=== PATIENT | female | born 1945 | race Caucasian/White ===

== ENCOUNTER 2021-05-26 02:27 | Day surgery (SDC) | payer MEDICARE, SELFPAY ==
[2021-05-21 08:56] VITALS: BMI 27.3
--- NOTE | 2021-05-26 07:19 | WPDHPUPDATE1 ---
History and Physical Update Update Date/Time: 05/26/21 07:19 History and Physical has been reviewed, including an updated exam of the patient. There are NO changes in the patient's condition. Risks, benefits, and alternatives have been discussed and questions answered. Patient agrees to proceed with procedure.
--- NOTE | 2021-05-26 12:23 | WPDANESEPPF ---
Anes - Initial Pre Proc Eval Procedure: Operation Date: 05/26/21 13:30 Proposed Procedures p Right Carpal Tunnel Release - Rubén Matos MD Date/Time: 05/26/21 12:23 Surgeon: Rubén Matos MD Pre Op Diagnosis: Right Carpal Tunnel Syndrome Patient Data Age: 76 Gender: F Height: 1.65 m Weight: 74.4 kg Allergies Allergy/AdvReac Type Severity Reaction Status Date / Time Sulfa (Sulfonamide Allergy Unknown UNKNOWN Verified 05/21/21 08:37 Antibiotics) sulfanilamide Allergy Unknown Unknown Verified 05/21/21 08:37 Home Medications Medication Instructions Recorded Confirmed Type PreserVision AREDS 2 tablet PO HS 07/25/19 05/21/21 History aspirin 81 mg tablet,delayed 81 mg PO HS 05/11/20 05/21/21 History release biotin 10,000 mcg capsule 10,000 mcg PO HS 05/11/20 05/21/21 History cholecalciferol (vitamin D3) 100 1,000 unit PO HS cap 05/11/20 05/21/21 History mcg (4,000 unit) capsule losartan 25 mg tablet 25 mg PO HS #90 tablet 10/02/20 05/21/21 Rx levothyroxine 25 mcg tablet 25 mcg PO Q48H #45 tablet 10/21/20 05/21/21 Rx multivitamin,gg-[id number] 1 tablet PO HS 05/21/21 05/21/21 History [Complete Multivitamin] Patient hx anesthesia problems: none Family hx anesthesia problems: none PMFSH Past Medical History Medical History Acid reflux Aftercare following knee joint replacement surgery Arthritis Cataract Chicken pox Hearing loss Hemorrhoid HTN (hypertension) with goal to be determined Hyperlipidemia Hypothyroid Measles Osteoarthritis Vision changes Surgical History Surgical History History of hysterectomy History of lumpectomy History of total left knee replacement Status post left knee replacement Status post right knee replacement Total knee replacement status Family History Family History Sibling Hypertension Carcinoma of colon Father Family history of chronic obstructive pulmonary disease Mother Patient's mother is Acute myocardial infarction Other Family history of arthritis Family history of malignant neoplasm Social History Social History Smoking status: Never smoker Alcohol intake: never Substance use: never Living arrangements: alone Gender identity (if verbalized by the patient): Female Spiritual care concerns: No Anes - Eval Final PreProcedure Day of Procedure 05/26/21 12:23 Patient weight: overweight Heart: regular rate and rhythm Lungs: clear to auscultation and normal air movement Airway: Mallampati scale class II Neurological: alert and oriented Last oral intake: >/= 8 hours ASA classification: II Emergent: no Anesthetic plan: proceed Anesthesia type and monitoring: general GIVS and standard monitoring Informed Consent: The patient's anesthetic plan and its attendant risks and benefits were discussed with the patient/family/POA. Questions were solicited and answers provided to the satisfaction of the patient/family/POA.
[2021-05-26] MEDS: CELECOXIB 200 MG CAPSULE PO (12:40)
[2021-05-26] MEDS: ACETAMINOPHEN 500 MG TABLET 1000 MG PO (12:40)
[2021-05-26] MEDS: LACTATED RINGERS 1,000 ML 30 ML IV CONT (12:45)
[2021-05-26] MEDS: ceFAZolin 2 GM/D5W 50 ML 2 GM/50 ML BAG IVPB (13:32)
[2021-05-26 14:16] VITALS: BP 120/65; PULSE 78; RESP 14; O2SAT 95
--- NOTE | 2021-05-26 14:22 | W.PM.PROC2 ---
Procedure Note - Detailed Date of Procedure 05/26/21 Pre-op Diagnosis Right Carpal Tunnel Syndrome Post-op Diagnosis same Procedure Performed RIGHT CTR Surgeon Rubén Matos MD Anesthesia general Description of Procedure THE RIGHT UPPER EXTREMITY WAS PREPPED AND DRAPED IN THE STERILE FASHION. THE CARPAL TUNNEL WAS MARKED FROM THE FLEXED RING FINGER. THE TOURNIQUET WAS INFLATED. THE INCISION WAS MADE AT THE MID PALM DOWN THROUGH THE SUBCUTANEOUS TISSUES. THE PALMAR FASCIA WAS IDENTIFIED. AN INCISION WAS MADE THROUGH THE PALMAR FASCIA UNTIL THE CARPAL TUNNEL WAS ENTERED. A MOSQUITO HEMOSTAT WAS USED TO PROTECT THE MEDIAN NERVE WHILE THE INCISION TO THE PALMAR FASCIA WAS COMPLETE PROXIMALLY AND DISTALLY TO THE CARDINAL LINE. NEXT, THE TRANSVERSE CARPAL LIGAMENT WAS IDENTIFIED. A FREER ELEVATOR WAS USED TO SEPARATE THE NERVE FROM THE LIGAMENT. A METZENBAUM SCISSORS WAS THEN USED TO INCISE THE TRANSVERSE CARPAL LIGAMENT UNTIL THERE WAS A COMPLETE RELEASE OF THE CARPAL TUNNEL. THE MEDIAN NERVE WAS INTACT. THE TOURNIQUET WAS DEFLATED. THE BLEEDERS WERE CAUTERIZED. THE WOUND WAS WASHED. THE SKIN WAS APPROXIMATED WITH 4-0 NYLON SUTURE. STERILE DRESSING WAS APPLIED. PATIENT WAS EXTUBATED AND SENT TO THE RECOVERY ROOM. Estimated Blood Loss 5 Complications No immediate complications Condition stable Disposition PACU
[2021-05-26 14:40] VITALS: BP 145/69; PULSE 76; RESP 14; O2SAT 95
[2021-05-26 15:10] VITALS: BP 153/67; PULSE 75; RESP 14
== END 2021-05-26 15:35 | disposition home or self-care (01) ==
PROVIDERS: PCP Internal Medicine; Visit Provider Orthopaedic Surgery
PROC: (CPT 64721; principal; 2021-05-26 13:30)
DX: G56.01 Carpal tunnel syndrome, right upper limb (principal); I10 Essential (primary) hypertension; E78.5 Hyperlipidemia, unspecified; E03.9 Hypothyroidism, unspecified; K21.9 Gastro-esophageal reflux disease without esophagitis; M19.90 Unspecified osteoarthritis, unspecified site; Z79.82 Long term (current) use of aspirin
CPT/HCPCS: 64721; A9270; J0690; J2704; J3010; J7120

== ENCOUNTER 2021-11-01 08:30 | Outpatient (CLI) | payer OTHER, SELFPAY ==
[2021-11-01 09:06] LABS: Basophils Percent Auto 0.8 % (0.2-1.2); Eosinophils Absolute Auto 0.3 K/mm3 (0-0.3); Eosinophils Percent Auto 5.7 % (0-4.4); Hematocrit 38.1 % (37.0-47.0); Hemoglobin 12.1 g/dL (12.0-15.0); Immature Granulocyte Absolute 0.02 K/mm3 (0.00-0.031); Immature Granulocyte Percent A 0.4 % (0-0.5); Lymphocytes Absolute Auto 1.26 K/mm3 (0.9-3.2); Lymphocytes Percent Auto 23.8 % (18.3-44.2); Mean Corpuscular HGB Conc 31.8 g/dl (32-36); Mean Corpuscular Hemoglobin 29.7 pg (26-34); Mean Corpuscular Volume 93.6 fl (80-100); Mean Platelet Volume 9.2 fl (7.4-10.4); Monocytes Absolute Auto 0.4 K/mm3 (0.1-0.6); Neutrophils Absolute Auto 3.3 K/mm3 (1.3-6.7); Neutrophils Percent Auto 62.3 % (45.5-73.1); Platelet Count Result 291 k/mm3 (150-375); Red Blood Count 4.07 M/mm3 (4.2-5.4); Red Cell Distribution Width 12.9 % (11.5-14.5); White Blood Count 5.3 K/mm3 (4.5-10.0)
[2021-11-01 09:10] LABS: Alanine Aminotransferase 18 U/L (4-35); Albumin Level 4.1 g/dL (3.5-5.1); Alkaline Phosphatase 78 U/L (38-126); Anion Gap 4 mmol/L (8-16); Aspartate Amino Transferase 43 U/L (14-36); Bilirubin,Total 0.5 mg/dL (0.2-1.3); Blood Urea Nitrogen 15 mg/dL (7-17); Calcium 9.3 mg/dL (8.4-10.2); Carbon Dioxide 27 mmol/L (22-30); Chloride 108 mmol/L (98-107); Cholesterol 221 mg/dL (0-200); Estimated Glomerular Filt Rate > 60; Glucose 114 mg/dL (65-110); HDL Direct 44 mg/dL; Potassium 4.1 mmol/L (3.4-5.0); Sodium 139 mmol/L (137-145); Triglycerides 98 mg/dL (<150)
[2021-11-01 09:22] LABS: LDL Cholesterol Direct 130 mg/dL
== END 2021-11-01 08:31 | disposition home or self-care (01) ==
PROVIDERS: PCP Internal Medicine; Visit Provider Nurse Practitioner
DX: I10 Essential (primary) hypertension (principal); E55.9 Vitamin D deficiency, unspecified; E78.5 Hyperlipidemia, unspecified; E03.9 Hypothyroidism, unspecified
CPT/HCPCS: 36415; 80053; 80061; 82306; 84443; 85025

== ENCOUNTER 2022-06-15 09:05 | Outpatient (CLI) | payer OTHER, SELFPAY ==
[2022-06-15 20:18] LABS: Hemoglobin A1C 5.6 % (<5.7)
[2022-06-15 20:28] LABS: Alanine Aminotransferase 25 U/L (6-35); Albumin Level 4.2 g/dL (3.5-5.1); Alkaline Phosphatase 76 U/L (38-126); Anion Gap 12 mmol/L (8-16); Aspartate Amino Transferase 65 U/L (14-36); Bilirubin,Total 0.3 mg/dL (0.2-1.3); Blood Urea Nitrogen 10 mg/dL (7-17); Calcium 9.2 mg/dL (8.4-10.2); Carbon Dioxide 24 mmol/L (22-30); Chloride 105 mmol/L (98-107); Cholesterol 146 mg/dL (0-200); Estimated Glomerular Filt Rate > 60; Glucose 102 mg/dL (65-110); HDL Direct 41 mg/dL; Potassium 3.9 mmol/L (3.4-5.0); Sodium 141 mmol/L (137-145); Triglycerides 90 mg/dL (<150)
[2022-06-15 20:38] LABS: LDL Cholesterol Direct 70 mg/dL
== END 2022-06-15 09:06 | disposition home or self-care (01) ==
PROVIDERS: PCP Internal Medicine; Visit Provider Nurse Practitioner
DX: R73.03 Prediabetes (principal); E78.2 Mixed hyperlipidemia
CPT/HCPCS: 36415; 80053; 80061; 83036

== ENCOUNTER 2023-06-20 08:29 | Outpatient (CLI) | payer OTHER, SELFPAY ==
[2023-06-20 12:09] LABS: Basophils Absolute Auto 0.1 K/mm3 (0.0-0.1); Basophils Percent Auto 0.7 % (0.2-1.2); Eosinophils Absolute Auto 0.2 K/mm3 (0-0.3); Eosinophils Percent Auto 2.7 % (0-4.4); Hematocrit 36.9 % (37.0-47.0); Hemoglobin 11.2 g/dL (12.0-15.0); Immature Granulocyte Absolute 0.04 K/mm3 (0.00-0.031); Immature Granulocyte Percent A 0.5 % (0-0.5); Lymphocytes Absolute Auto 1.46 K/mm3 (0.9-3.2); Lymphocytes Percent Auto 19.6 % (18.3-44.2); Mean Corpuscular HGB Conc 30.4 g/dl (32-36); Mean Corpuscular Hemoglobin 29.8 pg (26-34); Mean Corpuscular Volume 98.1 fl (80-100); Mean Platelet Volume 9.7 fl (7.4-10.4); Monocytes Absolute Auto 0.5 K/mm3 (0.1-0.6); Neutrophils Absolute Auto 5.2 K/mm3 (1.3-6.7); Neutrophils Percent Auto 69.5 % (45.5-73.1); Platelet Count Result 313 k/mm3 (150-375); Red Blood Count 3.76 M/mm3 (4.2-5.4); Red Cell Distribution Width 13.2 % (11.5-14.5); White Blood Count 7.4 K/mm3 (4.5-10.0)
[2023-06-20 12:17] LABS: Alanine Aminotransferase 38 U/L (6-35); Albumin Level 4.1 g/dL (3.5-5.1); Alkaline Phosphatase 94 U/L (38-126); Anion Gap 7 mmol/L (8-16); Aspartate Amino Transferase 73 U/L (14-36); Bilirubin,Total 0.5 mg/dL (0.2-1.3); Blood Urea Nitrogen 7 mg/dL (7-17); Calcium 9.2 mg/dL (8.4-10.2); Carbon Dioxide 26 mmol/L (22-30); Chloride 107 mmol/L (98-107); Cholesterol 148 mg/dL (0-200); Estimated Glomerular Filt Rate > 60; Glucose 97 mg/dL (65-110); HDL Direct 42 mg/dL; Potassium 4.1 mmol/L (3.4-5.0); Sodium 140 mmol/L (137-145); Triglycerides 86 mg/dL (<150)
[2023-06-20 12:30] LABS: LDL Cholesterol Direct 73 mg/dL
[2023-06-20 12:41] LABS: Vitamin D 25 Hydroxy 38.8 ng/mL
[2023-06-20 12:57] LABS: Hemoglobin A1C 5.4 % (<5.7)
== END 2023-06-20 08:30 | disposition home or self-care (01) ==
PROVIDERS: PCP Internal Medicine; Visit Provider Nurse Practitioner
DX: R73.03 Prediabetes (principal); E78.5 Hyperlipidemia, unspecified; E55.9 Vitamin D deficiency, unspecified; I10 Essential (primary) hypertension; E03.9 Hypothyroidism, unspecified
CPT/HCPCS: 36415; 80053; 80061; 82306; 83036; 84443; 85025

== ENCOUNTER 2024-07-11 08:55 | Outpatient (CLI) | payer OTHER, SELFPAY ==
[2024-07-11 18:52] LABS: Basophils Absolute Auto 0.1 K/mm3 (0.0-0.1); Eosinophils Absolute Auto 0.2 K/mm3 (0-0.3); Eosinophils Percent Auto 2.9 % (0-4.4); Hematocrit 38.5 % (37.0-47.0); Hemoglobin 11.8 g/dL (12.0-15.0); Immature Granulocyte Absolute 0.02 K/mm3 (0.00-0.031); Immature Granulocyte Percent A 0.3 % (0-0.5); Lymphocytes Absolute Auto 1.75 K/mm3 (0.9-3.2); Lymphocytes Percent Auto 28.4 % (18.3-44.2); Mean Corpuscular HGB Conc 30.6 g/dl (32-36); Mean Corpuscular Hemoglobin 29.1 pg (26-34); Mean Corpuscular Volume 94.8 fl (80-100); Mean Platelet Volume 10.4 fl (7.4-10.4); Monocytes Absolute Auto 0.5 K/mm3 (0.1-0.6); Neutrophils Absolute Auto 3.7 K/mm3 (1.3-6.7); Neutrophils Percent Auto 59.4 % (45.5-73.1); Platelet Count Result 266 k/mm3 (150-375); Red Blood Count 4.06 M/mm3 (4.2-5.4); White Blood Count 6.2 K/mm3 (4.5-10.0)
[2024-07-11 19:53] LABS: LDL Cholesterol Direct 61 mg/dL
[2024-07-11 19:54] LABS: Alanine Aminotransferase 21 U/L (6-35); Albumin Level 4.1 g/dL (3.5-5.1); Alkaline Phosphatase 71 U/L (38-126); Anion Gap 6 mmol/L (4-12); Aspartate Amino Transferase 59 U/L (14-36); Bilirubin,Total 0.5 mg/dL (0.2-1.3); Blood Urea Nitrogen 12 mg/dL (7-17); Calcium 9.4 mg/dL (8.4-10.2); Carbon Dioxide 26 mmol/L (22-30); Chloride 105 mmol/L (98-107); Cholesterol 157 mg/dL (0-200); Estimated Glomerular Filt Rate > 60; Glucose 95 mg/dL (65-110); HDL Direct 53 mg/dL; Potassium 4.2 mmol/L (3.4-5.0); Sodium 137 mmol/L (137-145); Triglycerides 101 mg/dL (<150)
[2024-07-11 21:06] LABS: Hemoglobin A1C 6.1 % (<5.7)
[2024-07-11 21:14] LABS: Vitamin D 25 Hydroxy 47.8 ng/mL
== END 2024-07-11 08:56 | disposition home or self-care (01) ==
PROVIDERS: PCP Internal Medicine; Visit Provider Nurse Practitioner
DX: R73.03 Prediabetes (principal); E78.5 Hyperlipidemia, unspecified; E55.9 Vitamin D deficiency, unspecified; E03.9 Hypothyroidism, unspecified
CPT/HCPCS: 36415; 80053; 80061; 82306; 83036; 84443; 85025

== ENCOUNTER 2025-01-10 09:37 | Outpatient (CLI) | payer OTHER, SELFPAY ==
--- OUTSIDE RECORDS SUMMARY | 2025-01-10 09:42 | XMS_ITS | Continuity of Care Document ---
Author Organization [facility] [place] Address [address] [facility] [address] [facility] [address] [place] [phone] Phone Care Team Providers Care [employer] Name Role Phone Nick OD, Evan Unavailable Unavailable Procedures Procedure Date Eye Exam & Treatment Dilated Macular Exam Performed 10 Counseling For Antioxidant Supplements A Post-op Follow-up Visit Post-op Follow-up Visit Remove Cataract, Insert Lens PreOp Assessment Performed Limbal Relaxing Incision Office/outpatient Visit, Est Dilated Macular Exam Performed 09 Counseling For Antioxidant Supplements J Script Printed/Phoned Pt Requ Or Pharm N ot Availab [facility]Professional Eye Exam & Treatment No Script CL Replacement - [employer] Disp W/BW Soft A Green Night's Sleep Medical Eye Exam & Treatment No Script CL Replacement - [employer] Other 008 Tax Medical CL Replacement - [employer] Other 008 [facility] Medical Post-op Follow-up Visit Refraction Post-op Follow-up Visit Remove Cataract, Insert Lens Eye Exam & Treatment [employer] Advance Directives Directive Yes / No Effective Date File Name No Information Encounters Encounter Description Practice Location Reason(s) For Visit Diagnoses Date Provider Providers Copied on Encounter [facility], [id number] [place] [address] [address], [place], [place], [id number], [place] tel:[phone] [facility] No Information 0 Nick OD Evan. [address], [address], [place], [place], [facility], [place]. tel:[phone] [facility], [address] [place] [address] [address], [place], [place], [id number], [place] tel:[phone] [facility] No Information 9 Nick OD Evan. [address], [address], [place], [place], [facility], [place]. tel:[phone] [facility], [address] [place] [address] [address], [place], [place], [id number], [place] tel:[phone] [facility] No Information 2200 9 Doisy Edok. [address], [address], [place], [place], [facility], [place]. tel:[phone] [facility], [address] [place] [address] [address], [place], [place], [id number], [place] tel:[phone] [facility] No Information 1200 9 Doisy Edok. [address], [address], [place], [place], [facility], [place]. tel:[phone] Office/outpat ient Visit, Est [facility], [address] [place] [address] [address], [place], [place], [id number], [place] tel:[phone] [facility] No Information 3[address] Doisy Edok. [address], [address], [place], [place], [facility], [place]. tel:[phone] Referring Provider: Evan Nick OD A, [address], [place], [place], [facility]. tel:[phone] [facility], [address], [place], [place], [id number], [place] tel:[phone] [facility] No Information Bala-0 2-200 9 Nick OD Evan. [address] , [address], [place], [place], [facility], [place]. tel:[phone] [facility], [address] [place] [address] [address], [place], [place], [id number], [place] tel:[phone] [facility] No Information Apr-2 2-200 9 Nick OD Evan. [address] , [address], [place], [place], [facility], [place]. tel:[phone] [facility], [address] [place] [address] [address], [place], [place], [id number], [place] tel:[phone] [facility] No Information Mar-1 2-200 9 Doisy Edward. [address] , [address], [place], [place], [facility], [place]. tel:[phone] [facility], [address] [place] [address] [address], [place], [place], [id number], [place] tel:[phone] [facility] No Information Oct-2 1-200 8 Nick OD Evan. [address] , [address], [place], [facility], [place]. tel:[phone] [facility], [address] [place] [address] [address], [place], [place], [id number], [place] tel:[phone] [facility] No Information Aug-1 2-200 8 Nick OD Evan. [address] , [address], [place], [facility], [place]. tel:[phone] [facility], [address] [place] [address] [address], [place], [place], [id number], tel:[phone] [facility] No Information 8 Nick OD Evan. [facility] [address] , [address], [place], [place], [facility], . tel:[phone] [facility], [address], [place], [place], [id number], tel:[phone] [facility] No Information 8 Suzie Suresh. [facility] [address], [place], [facility], [place]. tel:[phone] [facility], [address], [place], [place], [id number], tel:[phone] [facility] No Information 8 Suzie Suresh. [address] [place], [place] [address], [address], [place], [facility], [place]. tel:[phone] [facility], [address] [place] [address] [address], [place], [place], [id number], [place] tel:[phone] [facility] No Information 8 Suzie Suresh. [address] [place], [place] [address], [address], [place], [place], [facility], . tel:[phone] Referring Provider: Kerwin Presley, [facility] [address], [place], [facility]. tel:[phone] Family History Family Member Type Diagnosis Age At Onset No Information Payers Payer name Insurance type Covered libertarian ID Authoralisiaa josy(s) [place] [id number] [facility] [place] [place] [id number] Social History Type Description Quantity Date Captured Comments Sex Female Smoking Status No Information Chief Complaint And Reason For Visit No Information Reason For Referral Reason For Referral No Information History Of Present Illness Encounter Date Complaint History Of Prese nt Illness No Information Functional Status Date Functional Assessmen t No Information Instructions Date Instruction Additional Infor mation No Information Assessments Type Assessment Date No Information Patient Care Teams Name Effective Dates (start - stop) Status Members No Information
[2025-01-10 13:35] LABS: Basophils Percent Auto 0.8 % (0.2-1.2); Eosinophils Absolute Auto 0.2 K/mm3 (0-0.3); Eosinophils Percent Auto 3.8 % (0-4.4); Hematocrit 39.8 % (37.0-47.0); Hemoglobin 11.7 g/dL (12.0-15.0); Immature Granulocyte Absolute 0.03 K/mm3 (0.00-0.031); Immature Granulocyte Percent A 0.6 % (0-0.5); Lymphocytes Absolute Auto 1.46 K/mm3 (0.9-3.2); Mean Corpuscular HGB Conc 29.4 g/dl (32-36); Mean Corpuscular Hemoglobin 29.2 pg (26-34); Mean Corpuscular Volume 99.3 fl (80-100); Mean Platelet Volume 9.9 fl (7.4-10.4); Monocytes Absolute Auto 0.4 K/mm3 (0.1-0.6); Monocytes Percent Auto 6.7 % (2.6-8.5); Neutrophils Absolute Auto 3.1 K/mm3 (1.3-6.7); Neutrophils Percent Auto 60.1 % (45.5-73.1); Platelet Count Result 276 k/mm3 (150-375); Red Blood Count 4.01 M/mm3 (4.2-5.4); Red Cell Distribution Width 13.2 % (11.5-14.5); White Blood Count 5.2 K/mm3 (4.5-10.0)
[2025-01-10 13:41] LABS: Alanine Aminotransferase 25 U/L (6-35); Albumin Level 4.2 g/dL (3.5-5.1); Alkaline Phosphatase 78 U/L (38-126); Anion Gap 7 mmol/L (4-12); Aspartate Amino Transferase 73 U/L (14-36); Bilirubin,Total 0.4 mg/dL (0.2-1.3); Blood Urea Nitrogen 13 mg/dL (7-17); Calcium 9.2 mg/dL (8.4-10.2); Carbon Dioxide 29 mmol/L (22-30); Chloride 107 mmol/L (98-107); Cholesterol 150 mg/dL (0-200); Estimated Glomerular Filt Rate > 60; Glucose 92 mg/dL (65-110); HDL Direct 55 mg/dL; Potassium 4.4 mmol/L (3.4-5.0); Sodium 143 mmol/L (137-145); Triglycerides 99 mg/dL (<150)
[2025-01-10 13:52] LABS: LDL Cholesterol Direct 55 mg/dL
[2025-01-10 14:03] LABS: Vitamin D 25 Hydroxy 37.9 ng/mL
[2025-01-10 14:32] LABS: Hemoglobin A1C 5.8 % (<5.7)
== END 2025-01-10 09:38 | disposition home or self-care (01) ==
PROVIDERS: PCP Internal Medicine; Visit Provider Nurse Practitioner
DX: E78.2 Mixed hyperlipidemia (principal); R73.03 Prediabetes; E03.9 Hypothyroidism, unspecified; E55.9 Vitamin D deficiency, unspecified
CPT/HCPCS: 36415; 80053; 80061; 82306; 83036; 84443; 85025

== ENCOUNTER 2025-05-15 08:59 | Outpatient (CLI) | payer OTHER, SELFPAY | END 2025-05-15 09:00 | disposition home or self-care (01) | LOC: ANHAUDIO 09:00 | PROVIDERS: PCP Nurse Practitioner; Visit Provider Nurse Practitioner | DX: Z71.89 Other specified counseling (principal); E78.5 Hyperlipidemia, unspecified; I10 Essential (primary) hypertension; R73.03 Prediabetes; E03.9 Hypothyroidism, unspecified; H90.42 Sensorineural hearing loss, unilateral, left ear, with unrestricted hearing on the contralateral side; H90.71 Mixed conductive and sensorineural hearing loss, unilateral, right ear, with unrestricted hearing on the contralateral side | CPT/HCPCS: 92557; 92567 ==